=== PATIENT | female | born 1930 | race Caucasian/White ===

== ENCOUNTER 2016-09-20 10:43 | Inpatient (IN) | payer OTHER ==
[2016-09-20] VITALS (39 sets, daily range): BP systolic 114–184; BP diastolic 55–86; PULSE 67–80; RESP 16–20
[~2016-09-20] VITALS: Ht 157.5 cm; Wt 62.4 kg
[~2016-09-20 10:43] MED LIST: AMLO2.5T78 PO; DOCU-144 PO; FURO20TA3 PO; HYDR-3498 PO
[2016-09-20] MEDS ORDERED: ONDANSETRON 4 MG INJ IV STA ×2 (11:07→13:04)
[2016-09-20] MEDS ORDERED: morphine 4 MG/ML VIAL IV STA (11:07)
[2016-09-20] MEDS ORDERED: SOD CHLORIDE 0.9% 1,000 ML IV STA (11:07)
[2016-09-20 11:39] LABS: ADD SCAN DIFF NO
[2016-09-20 11:43] LABS: BASOPHILS % 0.3 % (0.0-2.0); EOSINOPHILS % 0.2 % (0.0-7.0); HEMOGLOBIN 13.3 g/dl (12.0-16.0); LYMPHOCYTES # 1.1 10^3/ul (0.8-2.9); LYMPHOCYTES % 9.3 % (15.0-51.0); MEAN CORPUSCULAR HEMOGLOBIN 28.2 pg (29.0-33.0); MEAN CORPUSCULAR HGB CONC 33.3 g/dl (32.0-37.0); MEAN CORPUSCULAR VOLUME 84.9 fl (82.0-101.0); MEAN PLATELET VOLUME 10.8 fl (7.4-10.4); MONOCYTE # 0.7 10^3/ul (0.3-0.9); MONOCYTES % 6.3 % (0.0-11.0); NEUTROPHIL # 9.6 10^3/ul (1.6-7.5); NEUTROPHILS % 83.6 % (39.0-77.0); PLATELET COUNT 239 10^3/UL (140-415); RED BLOOD COUNT 4.71 10^6/ul (4.20-5.40); RED CELL DISTRIBUTION WIDTH 14.6 % (11.5-14.5); WHITE BLOOD COUNT 11.5 10^3/ul (4.8-10.8)
[2016-09-20 11:59] LABS: ALBUMIN 4.1 g/dl (3.3-4.9); CHLORIDE 101 mmol/L (97-110); SODIUM 135 mmol/L (135-144)
[2016-09-20 12:00] LABS: POTASSIUM 3.8 mmol/L (3.5-5.1)
[2016-09-20 12:02] LABS: ALBUMIN/GLOBULIN RATIO 1.24; ALKALINE PHOSPHATASE 117 IU/L (42-121); ANION GAP 13 (8-16); ASPARTATE AMINO TRANSFERASE 27 IU/L (15-46); BILIRUBIN,INDIRECT 0.7 mg/dl (0-1.1); BILIRUBIN,TOTAL 0.7 mg/dl (0.2-1.3); BLOOD UREA NITROGEN 27 mg/dl (7-20); CARBON DIOXIDE 25 mmol/L (21-31); CREATININE 1.28 mg/dl (0.44-1.00); TOTAL PROTEIN 7.4 g/dl (6.1-8.1)
[2016-09-20 12:03] LABS: ALANINE AMINOTRANSFERASE 19 IU/L (13-69); CALCIUM 9.6 mg/dl (8.4-10.2); GLUCOSE 135 mg/dl (70-220)
[2016-09-20 12:05] LABS: INR 0.98
[2016-09-20 12:06] LABS: PARTIAL THROMBOPLASTIN TIME 25.8 Sec (25.0-35.0)
[2016-09-20 12:15] LABS: TROPONIN-I < 0.012 ng/ml (0.00-0.12)
[2016-09-20] MEDS ORDERED: HYDROmorphONE 1 MG/ML SYG IV STA (13:04)
--- NOTE | 2016-09-20 13:32 | RADRPT ---
PROCEDURE: XR Shoulder. CLINICAL INDICATION: Fall TECHNIQUE: Three views of the right shoulder are available for review. COMPARISON: None available FINDINGS: There is anterior dislocation of the humeral head. Addition there is a complete transverse fracture of the surgical neck of the humerus and a displaced fracture of the tuberosity, displaced laterally by up to 7 mm. The distal fragment is mildly displaced anteriorly and laterally. Mild AC joint ar throsis is noted. Decreased bone mineral density. IMPRESSION: 1. Anterior dislocation of the humeral head with a comminuted proximal humeral fracture, at least a three-part fracture. 2. Decreased bone mineral density. RPTAT: RR .Jeremias Ross MD, MD Date Time Electronically viewed and signed by .Jeremias Ross MD, on 09/20/2016 13:32 .d/
[2016-09-20] MEDS ORDERED: ONDANSETRON 4 MG INJ IV PRN ×3 (14:00→18:00)
--- NOTE | 2016-09-20 14:25 | ERA ---
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 GOOD DISTAL PULSES HPI This is a in 86-year-old female that presents to the emergency department after she indicated she had a mechanical slip and fall in her house and landed on a tile surface on the right shoulder. She is right-handed dominant. She is complaining of a significant amount of pain of her right shoulder and she is unable to move her right upper extremity, as this exacerbates pain, which is 10 out of 10 in intensity. She denies any numbness or tingling of her right upper extremity. The patient did not hit her head or lose consciousness. She denies of any chest pain abdominal pain and does not have a headache. Patient is a past medical history of hypertension. ROS All systems reviewed and are negative except as per history of present illness. Medications Home Meds Active Scripts Docusate Sodium* (Colace*) 100 Mg Capsule, 100 MG PO TID, #30 CAP Prov:ASHVIN ARIAS MD 01/11/16 Hydrocodone Bit-Acetaminophen* ([place]*) 5-325 Mg Tab, 1 TAB PO Q6 Y for PAIN, # 20 TAB Prov:ASHVIN ARIAS MD 01/11/16 Reported Medications Amlodipine Besylate* (Amlodipine Besylate*) 2.5 Mg Tablet, 2.5 MG PO DAILY, #30 TAB 01/11/16 Furosemide* (Furosemide*) 20 Mg Tablet, 20 MG PO DAILY, #60 TAB 01/11/16 Allergies Allergies: Coded Allergies: No Known Allergy (Unverified , 09/20/16) PMhx/Soc History of Surgery: Yes (LT LEG ) Anesthesia Reaction: No Hx Neurological Disorder: No Hx Respiratory Disorders: No Hx Cardiac Disorders: Yes (htn) Hx Psychiatric Problems: No Hx Miscellaneous Medical Probl: No Hx Alcohol Use: No Hx Substance Use: No Hx Tobacco Use: Yes Smoking Status: Former smoker Physical Exam Vitals Vital Signs Date Time Temp Pulse Resp B/P Pulse Ox O2 Delivery O2 Flow Rate FiO2 09/20/16 10:48 98.8 85 20 159/71 98 Physical Exam Constitutional:Well-developed. Well-nourished. HEENT:Normocephalic. Atraumatic.Pupils were equal round reactive to light. Moist mucous membranes.No tonsillar exudates. No nasal septal hematoma. No hemotympanum. Neck: No nuchal rigidity. No lymphadenopathy. No posterior cervical spine tenderness or step-offs. Respiratory: Not using accessory muscles of respiration.Lungs were clear to auscultation bilaterally. No rhonchi. No rales. No wheezing. Cardiovascular: Regular rate regular rhythm.No murmurs. No rubs were appreciated.S1, S2 normal. Distal pulses are palpable 2+ bilaterally. GI: Abdomen was soft. Nontender. Non Distended. No pulsatile abdominal masses or bruits. No rebound. No guarding. Bowel sounds were present and normal. No flank ecchymosis. No periumbilical ecchymosis Muscle skeletal: Lower extremities were of equal length and symmetrical with no internal or external rotation. Normal lie to the left humeral head. Abnormal lie to the right humeral head with significant tenderness over the right proximal humerus no obvious bony deformities of the midshaft or distal shaft of the right upper extremity. Flexion extension of the right elbow was able to be done both actively and passively but this exacerbated pain. No wrist drop on the right. No tenderness over the right metacarpals and patient had equal and symmetrical handgrip. Skin: No petechia, no purpura. No lesions on the palms or the soles of the feet. No maculopapular rash. NEURO: Patient was alert, awake, orientated x3.No facial droop. Gait observed and normal with no ataxia.Speech had regular rate and rhythm. No focal neurological deficits. FDP and FDS were intact bilaterally. Sensation intact over the axillary nerve as well as medial radial and ulnar nerve distribution of the right upper extremity. Radial and ulnar pulses were equal and symmetrical bilaterally Result Diagram: 09/20/16 1129 09/20/16 1129 Results 24 hrs Laboratory Tests Test 09/20/16 11:29 White Blood Count 11.510^3/ul Red Blood Count 4.7110^6/ul Hemoglobin 13.3g/dl Hematocrit 40.0% Mean Corpuscular Volume 84.9fl Mean Corpuscular Hemoglobin 28.2pg Mean Corpuscular Hemoglobin Concent 33.3g/dl Red Cell Distribution Width 14.6% Platelet Count 00273^3/UL Mean Platelet Volume 10.8fl Neutrophils % 83.6% Lymphocytes % 9.3% Monocytes % 6.3% Eosinophils % 0.2% Basophils % 0.3% Nucleated Red Blood Cells % 0.0/100WBC Neutrophils # 9.610^3/ul Lymphocytes # 1.110^3/ul Monocytes # 0.710^3/ul Eosinophils # 0.010^3/ul Basophils # 0.010^3/ul Nucleated Red Blood Cells # 0.010^3/ul Prothrombin Time 13.0Sec Prothrombin Time Ratio 1.0 INR International Normalized Ratio 0.98 Activated Partial Thromboplast Time 25.8Sec Sodium Level 135mmol/L Potassium Level 3.8mmol/L Chloride Level 101mmol/L Carbon Dioxide Level 25mmol/L Anion Gap 13 Blood Urea Nitrogen 27mg/dl Creatinine 1.28mg/dl Glucose Level 135mg/dl Calcium Level 9.6mg/dl Total Bilirubin 0.7mg/dl Direct Bilirubin 0.00mg/dl Indirect Bilirubin 0.7mg/dl Aspartate Amino Transf (AST/SGOT) 27IU/L Alanine Aminotransferase (ALT/SGPT) 19IU/L Alkaline Phosphatase 117IU/L Troponin I < 0.012ng/ml Total Protein 7.4g/dl Albumin 4.1g/dl Globulin 3.30g/dl Albumin/Globulin Ratio 1.24 Current Medications Medications (Trade) Dose Ordered Sig/Yanira Route PRN Reason Start Time Stop Time Status Last Admin Dose Admin Sodium Chloride (NS) 1,000 ml @ 1,000 mls/hr Q1H STAT IV 09/20/16 11:07 09/20/16 12:06 DC 09/20/16 11:35 Morphine Sulfate (morphine) 4 mg ONCE STAT IV 09/20/16 11:07 09/20/16 11:10 DC 09/20/16 11:35 Ondansetron HCl (Zofran Inj) 4 mg ONCE STAT IV 09/20/16 11:07 09/20/16 11:10 DC 09/20/16 11:34 Hydromorphone HCl (Dilaudid) 1 mg ONCE STAT IV 09/20/16 13:04 09/20/16 13:05 DC 09/20/16 13:42 Ondansetron HCl (Zofran Inj) 4 mg ONCE STAT IV 09/20/16 13:04 09/20/16 13:05 DC 09/20/16 13:42 Ondansetron HCl (Zofran Inj) 4 mg BRIDGE ORDER PRN IV NAUSEA AND/OR VOMITING 09/20/16 14:00 09/21/16 13:59 Procedures/MDM This patient presented to the emergency department after she expressed a ground- level fall. The patient was in a significant amount of discomfort and immediately was placed in a monitoring specialist continuous pulse oximetry and IV access was established by nursing staff. The patient had a fracture dislocation of her right upper extremity that was present on physical exam and as well as the two-view right shoulder radiograph that was ordered and reviewed by myself. At this time the patient had been placed in a sling for immobilization. She was neurovascularly intact. I spoke with the radiologist Dr. Barrera who kindly stated he will take the patient to the OR for definitive treatment for her fracture dislocation. The patient had received intravenous morphine and Zofran for analgesic control but this did not improve her pain. Therefore she was given IV Dilaudid at this time. I obtained a 12-lead EKG tracing for preoperative workup. There is no electrolyte abnormalities. 12 Lead EKG tracing ordered and reviewed by myself showed: Normal sinus rhythm of 60 bpm and no arrhythmia. WI interval normal. QRS duration normal. No ST segment elevation No ST segment depression. No changes consistent with acute ischemia. The patient will be admitted to , in serious condition with an anticipated stay of greater than 2 midnights given that the patient will have to go to the OR for definitive treatment of her fracture dislocation of the right upper extremity. Critical Care: Time: 40 minutes Treatments/Evaluations: Close monitoring and treatment of unstable vital signs, cardiorespiratory, and neurologic status, while maintaining tight balance of fluid, respiratory, and cardiac interventions. Time does not include performing any of the above billable procedures. Departure Diagnosis: Primary Impression: Anterior dislocation of right shoulder Qualified Code: S43.014A - Anterior dislocation of right shoulder, initial encounter Additional Impression: Fracture of neck of humerus Qualified Code: S42.211A - Fracture of neck of humerus, right, closed, initial encounter Condition: Serious NILDA HIGGINS Sep 20, 2016 14:25
[2016-09-20] MEDS ORDERED: SOD CHLORIDE 0.9% 1,000 ML IV SCH (15:26)
[2016-09-20] MEDS ORDERED: HYDROCODONE/APAP (5/325) TAB PO PRN ×3 (15:30→17:30)
[2016-09-20] MEDS ORDERED: BISACODYL 10 MG SUPP PR PRN (15:30)
[2016-09-20] MEDS ORDERED: morphine 2 MG INJ IV PRN (15:30)
[2016-09-20] MEDS ORDERED: DOCUSATE SODIUM 100 MG CAP PO PRN (15:30)
[2016-09-20] MEDS ORDERED: MAGNESIUM HYDROXIDE 30ML CUP PO PRN (15:30)
[2016-09-20] MEDS ORDERED: ACETAMINOPHEN 325 MG TAB PO PRN (15:30)
[2016-09-20] MEDS ORDERED: NACL 0.9% 3 ML SYG IV SCH (15:30)
--- NOTE | 2016-09-20 15:52 | RADRPT ---
PROCEDURE: XR Chest. CLINICAL INDICATION: Trauma due to a fall. Chest pain and right shoulder pain. TECHNIQUE: Single frontal view. COMPARISON: Right shoulder radiographs done earlier the same day. FINDINGS: There is mild right basilar atelectasis. The lungs are otherwise clear. The heart is mildly enlarged. There is calcification in the aorta consistent with atherosclerosis. There is no pleural effusion or pneumothorax. As described on prior right shoulder radiographs, there is anterior dislocation of the humeral head and the comminuted proximal humerus fracture with at least 3 parts. IMPRESSION: 1. Mild right basilar atelectasis. 2. Mild cardiomegaly. 3. Atherosclerosis. 4. Fracture dislocation of the right humeral head. RPTAT: QQ .Dragan Messina MD, MD Date Time Electronically viewed and signed by .Dragan Messina MD, on 09/20/2016 15:52 .R/
--- NOTE | 2016-09-20 15:55 | HP ---
Date/Time of Note Date/Time of Note DATE: 09/20/16 TIME: 15:42 Assessment/Plan VTE Prophylaxis VTE Prophylaxis Intervention: SCD's Assessment/Plan Assessment/Plan 86-year-old female: 1. Right shoulder dislocation and humeral head fracture, Dr. Barrera has evaluated the patient, plan is for with reduction of the dislocated shoulder, hopefully patient will not need any further surgery after that just a sling and let the fracture heal Currently n.p.o., IV fluid has been ordered. From the medical standpoint patient may proceed with procedure with minimal anesthesia for reduction of the dislocated shoulder 2. Acute kidney injury versus chronic kidney disease: Continue IV fluids, recheck BMP in a.m. 3. Hypertension: Continue amlodipine, hydralazine as needed for systolic blood pressure above 160 4. Tobacco use: Nicotine patch, nebulizer treatment as needed for shortness of breath or wheezing, patient is encouraged to quit 5. Hard of hearing: Hearing aids in place Prophylaxis: Pepcid for GI prophylaxis, SCDs to lower extremity for DVT prophylaxis Disposition: To OR with Dr. Barrera for reduction of the dislocated shoulder, patient may need half-way facility placement in the next 24-48 hours depending on additional needs HPI/ROS Admit Date/Time Admit Date/Time 09/20/2016 Hx of Present Illness Chief complaint: Status post mechanical fall History of presenting illness: This is a 86-year-old female with history of hypertension mild, tobacco user moderate who presented in the emergency department status post mechanical fall this morning. The patient tripped and fell on the carpet, she fell on her right side and did not hit her head. She was having right shoulder pain, in the emergency department she was diagnosed with dislocation of the right shoulder and fracture of the humeral head on x- ray. She remains hemodynamically stable, EKG shows normal sinus rhythm no acute changes. She has no previous history of coronary artery disease. She denies chest pain, shortness of breath, dizziness. She has been evaluated by Dr. Barrera who will take her to the operating room for reduction of the dislocation of the right shoulder under anesthesia. From the medical standpoint the patient may proceed with the procedure, she is a mild to moderate risk but currently optimized with no acute symptoms. I will order nebulizer treatments perioperatively due to her history of tobacco use. Chest x-ray was reviewed and stable. The patient is hard of hearing at baseline. PMH/Family/Social Past Medical History Medical History: hypertension Past Surgical History Status post left heel surgery remotely Past Surgical Hx: other Social History Patient lives with her grandson, she is independent with all ADLs at baseline Smoking Status: Current every day smoker (4 cigarettes a day) Exam/Review of Systems Vital Signs Vitals Vital Signs Date Time Temp Pulse Resp B/P Pulse Ox O2 Delivery O2 Flow Rate FiO2 09/20/16 14:26 18 148/54 98 Room Air 09/20/16 12:48 74 09/20/16 10:48 98.8 Exam Constitutional: alert, oriented, well developed Respiratory: clear to auscultation, normal air movement Cardiovascular: nl pulses, regular rate and rhythm Gastrointestinal: non-tender, soft Musculoskeletal: nl extremities to inspection, other (Dislocated right shoulder ) Extremities: normal pulses, other (No edema, clubbing or cyanosis) Neurological: PERSONAL PROPERTY ASSESSOR II-XII intact, nl mental status, nl speech, nl strength, other (Hard of hearing) Labs Result Diagram: 09/20/16 1129 09/20/16 1129 Procedures Procedures PROCEDURE: XR Shoulder. CLINICAL INDICATION: Fall TECHNIQUE: Three views of the right shoulder are available for review. COMPARISON: None available FINDINGS: There is anterior dislocation of the humeral head. Addition there is a complete transverse fracture of the surgical neck of the humerus and a displaced fracture of the tuberosity, displaced laterally by up to 7 mm. The distal fragment is mildly displaced anteriorly and laterally. Mild AC joint arthrosis is noted. Decreased bone mineral density. IMPRESSION: 1. Anterior dislocation of the humeral head with a comminuted proximal humeral fracture, at least a three-part fracture. 2. Decreased bone mineral density. PROCEDURE: XR Chest. CLINICAL INDICATION: Trauma due to a fall. Chest pain and right shoulder pain. TECHNIQUE: Single frontal view. COMPARISON: Right shoulder radiographs done earlier the same day. FINDINGS: There is mild right basilar atelectasis. The lungs are otherwise clear. The heart is mildly enlarged. There is calcification in the aorta consistent with atherosclerosis. There is no pleural effusion or pneumothorax. As described on prior right shoulder radiographs, there is anterior dislocation of the humeral head and the comminuted proximal humerus fracture with at least 3 parts. IMPRESSION: 1. Mild right basilar atelectasis. 2. Mild cardiomegaly. 3. Atherosclerosis. 4. Fracture dislocation of the right humeral head. RPTAT: QQ .Dragan Messina MD, Date Time Electronically viewed and signed by .Dragan Messina MD, on 09/20/2016 15:52 JONAH JANG Sep 20, 2016 15:54
[2016-09-20] MEDS ORDERED: ALBUTEROL/IPRATROPIUM (NEB) 3 ML AMP HHN PRN (16:00)
[2016-09-20] MEDS ORDERED: hydrALAzine 20 MG INJ IV PRN ×2 (16:00→18:00)
[2016-09-20] MEDS ORDERED: LIDOCAINE 2% (SDV) 5 ML INJ ONE (16:58)
[2016-09-20] MEDS ORDERED: PROPOFOL 20 ML ONE (16:58)
[2016-09-20] MEDS ORDERED: FENTAnyl 50 MCG/ML VIAL ONE ×2 (16:59→17:49)
[2016-09-20] MEDS ORDERED: PHENYLephrine (100 MCG/ML) 5ML SYG ONE (17:16)
[2016-09-20] MEDS ORDERED: HYDROmorphONE (0.2 MG/ML) 10ML SYG IV PRN ×2 (18:00)
[2016-09-20] MEDS ORDERED: FENTAnyl 50 MCG/ML VIAL IV PRN (18:00)
--- NOTE | 2016-09-20 18:21 | CONS ---
DATE OF ADMISSION: 09/20/2016 DATE OF CONSULTATION: 09/20/2016 TYPE OF CONSULTATION: Orthopedic surgical HISTORY OF PRESENT ILLNESS: The patient is an 86-year-old female who was admitted on 09/20/2016 whe n she was brought into the emergency room because of the painful swelling and limit of motion involv ing her right shoulder. According to the patient, she fell on her right shoulder when she slipped a nd fell on the day of her admission. Following the fall, she was not able to move her right shoulde r because of the severe pain. Initial evaluation in the emergency room revealed the presence of rat her unusual combination of comminuted fracture involving the proximal shoulder dislocation with the comminuted fracture involving the right humeral head. Because of the unusual combination of this co mminuted fracture involving the humeral head along with the coexisting dislocation of the right shou lder joint, it was felt that she should be treated with trial of manipulative reduction under comple te anesthesia along with fluoroscopic monitoring. PHYSICAL EXAMINATION: My examination revealed an 86-year-old right-handed female who is complaining of painful swelling and limit of motion of the right shoulder. There was no obvious neurovascular compromise involving the right upper extremity at this time. The range of motion of the right shoul robert was not tested because of the obvious pain. DIAGNOSTIC DATA: X-rays of the right shoulder were reviewed and it revealed a presence of comminute d fracture involving the humeral head and neck, which is comminuted and displaced, along with the ob vious anterior type of shoulder dislocation. DIAGNOSTIC IMPRESSION: Severely comminuted and displaced fracture involving the humeral head and ne ck combined with the anterior type dislocation at the glenohumeral joint. TREATMENT PLAN: 1. Trial of manipulative reduction under full anesthesia and under fluoroscopic monitoring. 2. If the manipulative reduction is satisfactory, then further treatment should be carried out util izing HSS brace aiming for acceptable alignment of the fracture in a reduced position with the utili zation of an HSS brace. 3. If the manipulative reduction is not satisfactory, then possible primary hemiarthroplasty of the humeral head may have to be considered. Dictated By: KEVIN HERNANDEZ/SAILAJA Conf#: [id number] DID#: [id number]
--- NOTE | 2016-09-20 18:49 | OPR ---
DATE OF OPERATION: 09/20/2016 PREOPERATIVE DIAGNOSIS: Comminuted and displaced fracture involving the humeral head, combined with the anterior dislocation of the glenohumeral joint. POSTOPERATIVE DIAGNOSIS: Comminuted and displaced fracture involving the humeral head, combined wit h the anterior dislocation of the glenohumeral joint. OPERATION PERFORMED: Trial of manipulative reduction under complete anesthesia and under fluoroscop ic monitoring. ANESTHESIA: General anesthesia. SURGEON: Kevin Barrera MD PROCEDURE AND FINDINGS: Patient was placed in supine position upon the operating table. A satisfac tory pain control and complete muscle relaxation and sedation was carried out by general anesthesia. A C-arm was placed in such a way that AP and Y view of the right shoulder could be available throu ghout the procedure. With the countertraction placed with the bed sheet cover placed around the axi lla, gentle manipulative reduction was carried out, instead of carrying out sudden and strong push a nd pull gentle steadily increasing ____was applied while the alignment is observed in fluoroscopy an d the usual clunking sensation, the humeral head with all the fractured parts together was reduced i nto the glenohumeral articulation. At the end of the procedure, the right upper extremity was immob ilized in a sling and the AP and Y view of the right shoulder revealed a satisfactory alignment of t he fracture in the glenohumeral articulation. The patient tolerated the entire procedure very well without any unusual problems and the patient wa s sent to the recovery room in good condition. SURGEON: Kevin Barrera MD Dictated By: KEVIN HERNANDEZ/SAILAJA Conf#: [id number] DID#: [id number]
--- NOTE | 2016-09-20 19:33 | RADRPT ---
PROCEDURE: XR right shoulder. CLINICAL INDICATION: Postoperative for reduction of anterior dislocation of fractures right bill andrew TECHNIQUE: 3 views of the right shoulder were performed. COMPARISON: 09/20/2016. FINDINGS: Previously seen anterior dislocation of the right humerus is resolved. Comminuted fracture of the r ight humeral head and surgical neck of the right humerus. Consider CT correlation. Demineralizatio n limits evaluation of fine osseous detail. Remaining osseous structures otherwise without evident a cute fracture. The soft tissues are unremarkable. IMPRESSION: 1. Previously seen anterior dislocation of the right humerus is resolved. 2. Comminuted fracture of the proximal right humeral head and surgical neck. RPTAT: [facility] Physician Selina Date Time Electronically viewed and signed by Physician Selina on 09/20/2016 19:33 RS/
[2016-09-20] MEDS: FAMOTIDINE 20 MG INJ IV SCH (20:57)
[2016-09-20] MEDS: DOCUSATE SODIUM 100 MG CAP PO SCH (20:57)
[2016-09-20] MEDS: SOD CHLORIDE 0.9% 1,000 ML IV SCH (21:00)
[2016-09-21] VITALS: BP 155/66; RESP 18
[2016-09-21] MEDS: SOD CHLORIDE 0.9% 1,000 ML IV SCH ×3 (03:28→14:25)
[2016-09-21 05:16] LABS: ADD SCAN DIFF NO
[2016-09-21 05:28] LABS: ALBUMIN 3.1 g/dl (3.3-4.9)
[2016-09-21 05:29] LABS: POTASSIUM 3.9 mmol/L (3.5-5.1)
[2016-09-21 05:30] LABS: BASOPHILS % 0.4 % (0.0-2.0); EOSINOPHILS % 0.4 % (0.0-7.0); HEMATOCRIT 35.7 % (37.0-47.0); HEMOGLOBIN 11.4 g/dl (12.0-16.0); LYMPHOCYTES # 1.2 10^3/ul (0.8-2.9); LYMPHOCYTES % 17.3 % (15.0-51.0); MEAN CORPUSCULAR HEMOGLOBIN 27.7 pg (29.0-33.0); MEAN CORPUSCULAR HGB CONC 31.9 g/dl (32.0-37.0); MEAN CORPUSCULAR VOLUME 86.7 fl (82.0-101.0); MONOCYTE # 0.9 10^3/ul (0.3-0.9); MONOCYTES % 12.9 % (0.0-11.0); NEUTROPHIL # 4.8 10^3/ul (1.6-7.5); NEUTROPHILS % 68.7 % (39.0-77.0); PLATELET COUNT 196 10^3/UL (140-415); RED BLOOD COUNT 4.12 10^6/ul (4.20-5.40); RED CELL DISTRIBUTION WIDTH 14.6 % (11.5-14.5)
[2016-09-21 05:31] LABS: ALBUMIN/GLOBULIN RATIO 1.14; BILIRUBIN,INDIRECT 1.3 mg/dl (0-1.1); BILIRUBIN,TOTAL 1.3 mg/dl (0.2-1.3); CREATININE 1.24 mg/dl (0.44-1.00); TOTAL PROTEIN 5.8 g/dl (6.1-8.1)
[2016-09-21 05:32] LABS: CALCIUM 8.5 mg/dl (8.4-10.2); MAGNESIUM 2.1 mg/dl (1.7-2.5)
[2016-09-21 07:39] VITALS: Ht 157.5 cm; Wt 62.4 kg
[2016-09-21 07:45] VITALS: BP 170/73; RESP 19
[2016-09-21] MEDS: DOCUSATE SODIUM 100 MG CAP PO SCH ×3 (09:02→21:04)
[2016-09-21] MEDS: FAMOTIDINE 20 MG INJ IV SCH (09:02)
[2016-09-21] MEDS: AMLODIPINE 2.5 MG TAB PO SCH (09:03)
--- NOTE | 2016-09-21 12:03 | RADRPT ---
PROCEDURE: X-ray fluoroscopy guidance CLINICAL INDICATION: Close reduction of the right shoulder. TECHNIQUE: Fluoroscopic guidance was utilized for an intraoperative procedure. COMPARISON: None available FINDINGS: Fluoroscopic guidance was utilized for closed reduction of the right shoulder. A markedly comminute d fracture of the right humerus is noted with involvement of the surgical neck of the humerus and a displaced greater tuberosity fracture. The humeral head appears position on the final spot images. 41 seconds of fluoroscopy time was utilized for the procedure. 5 fluoroscopic spot images were obt ained. IMPRESSION: 1. X-ray fluoroscopic guidance utilized for close reduction of the comminuted humeral head fracture and dislocation. RPTAT: PP .Jeremias Ross MD, Date Time Electronically viewed and signed by .Jeremias Ross MD, MD on 09/21/2016 12:03 .d/
--- NOTE | 2016-09-21 12:10 | PN ---
Date/Time of Note Date/Time of Note DATE: 09/21/16 TIME: 11:56 Assessment/Plan VTE Prophylaxis VTE Prophylaxis Intervention: SCD's Lines/Catheters IV Catheter Type (from Nrsg): Peripheral IV Urinary Cath still in place: No Assessment/Plan Assessment/Plan 86-year-old female: 1. Right shoulder dislocation and humeral head fracture, Dr. Barrera has evaluated the patient, S/p Reduction of the dislocated shoulder, Still awaiting brace and PT eval for placement. Likely to need SNF Left humeral head fx to heal on its own with sling/brace in place D/c IVF as tolerating po. 2. Acute kidney injury versus chronic kidney disease: Taking po well, d/c IVF. Renal function stable 3. Hypertension: Continue amlodipine, hydralazine as needed for systolic blood pressure above 160 4. Tobacco use: Nebulizer treatment as needed for shortness of breath or wheezing, patient is encouraged to quit 5. Hard of hearing: Hearing aids in place and stable. Prophylaxis: Pepcid for GI prophylaxis, SCDs to lower extremity for DVT prophylaxis Disposition: POD#1 s/p Reduction of the dislocated shoulder by Dr Barrera, patient may need nursing home facility placement in the next 24 hrs depending on PT recommendation. Subjective 24 Hr Interval Summary Free Text/Dictation Patient doing OK LUE post reduction of dislocation, brace pending Pain controlled D/c plan depends on PT recommendations within the next 24 hrs Exam/Review of Systems Vital Signs Vitals Vital Signs Date Time Temp Pulse Resp B/P Pulse Ox O2 Delivery O2 Flow Rate FiO2 09/21/16 08:00 Nasal Cannula 2.0 09/21/16 07:45 98.2 71 19 170/73 98 Intake and Output 09/20/16 09/20/16 09/21/16 15:00 23:00 07:00 Intake Total 1200 ml 1338 ml Output Total 450 ml Balance 1200 ml 888 ml Exam Constitutional: alert, oriented, well developed Respiratory: clear to auscultation, normal air movement Cardiovascular: nl pulses, regular rate and rhythm Gastrointestinal: non-tender, soft Musculoskeletal: nl extremities to inspection, other (NURYS in sling ) Extremities: normal pulses, other (no edema, clubbing or cyanosis ) Neurological: CASHIER OFFICE II-XII intact, nl mental status, nl speech, other (awaiting PT this AM ) Results Result Diagram: 09/21/16 0429 09/21/16 0420 Results 24 hrs Laboratory Tests Test 09/21/16 04:20 09/21/16 04:29 Sodium Level 137 Potassium Level 3.9 Chloride Level 105 Carbon Dioxide Level 27 Anion Gap 9 Blood Urea Nitrogen 24 H Creatinine 1.24 H Glucose Level 102 Calcium Level 8.5 Magnesium Level 2.1 Total Bilirubin 1.3 Direct Bilirubin 0.00 Indirect Bilirubin 1.3 H Aspartate Amino Transf (AST/SGOT) 22 Alanine Aminotransferase (ALT/SGPT) 21 Alkaline Phosphatase 86 Total Protein 5.8 #L Albumin 3.1 #L Globulin 2.70 Albumin/Globulin Ratio 1.14 White Blood Count 7.0 # Red Blood Count 4.12 L Hemoglobin 11.4 L Hematocrit 35.7 L Mean Corpuscular Volume 86.7 Mean Corpuscular Hemoglobin 27.7 L Mean Corpuscular Hemoglobin Concent 31.9 L Red Cell Distribution Width 14.6 H Platelet Count 196 Mean Platelet Volume 11.0 H Neutrophils % 68.7 Lymphocytes % 17.3 Monocytes % 12.9 H Eosinophils % 0.4 Basophils % 0.4 Nucleated Red Blood Cells % 0.0 Neutrophils # 4.8 Lymphocytes # 1.2 Monocytes # 0.9 Eosinophils # 0.0 Basophils # 0.0 Nucleated Red Blood Cells # 0.0 Medications Medications Current Medications Ondansetron HCl (Zofran Inj) 4 mg Q6H PRN IV NAUSEA AND/OR VOMITING; Start at 15:30 Acetaminophen (Tylenol Tab) 650 mg Q6H PRN PO PAIN LEVEL 1-3 OR FEVER; Start at 15:30 Acetaminophen/ Hydrocodone Bitart ([place] (5/325)) 2 tab Q6H PRN PO SEVERE PAIN LEVEL 7-10; Start 09/20/16 at 15:30 Morphine Sulfate (morphine) 2 mg Q4H PRN IV SEVERE PAIN LEVEL 7-10; Start 09/20 at 15:30 Docusate Sodium (Colace) 100 mg Q12H PRN PO CONSTIPATION; Start 09/20/16 at 15: 30 Magnesium Hydroxide (Milk Of Mag) 30 ml DAILY PRN PO CONSTIPATION; Start at 15:30 Bisacodyl (Dulcolax Supp) 10 mg DAILY PRN [place] CONSTIPATION; Start 09/20/16 at 15 :30 Famotidine (Pepcid Iv) 20 mg Q12 IV Last administered on 09/21/16 09:02; Admin Dose 20 MG; Start 09/20/16 at 21:00 Amlodipine Besylate (Norvasc) 2.5 mg DAILY PO Last administered on 09/21/16 09 :03; Admin Dose 2.5 MG; Start 09/21/16 at 09:00 Docusate Sodium (Colace) 100 mg TID PO Last administered on 09/21/16 09:02; Admin Dose 100 MG; Start 09/20/16 at 21:00 Hydralazine HCl 10 mg 10 mg Q8H PRN IV ELEVATED BLOOD PRESSURE; Start 09/20/16 at 16:00 Sodium Chloride (NS) 1,000 ml @ 100 mls/hr Q10H IV Last administered on 06:59; Admin Dose 100 MLS/HR; Start 09/20/16 at 17:28 Acetaminophen/ Hydrocodone Bitart ([place] (5/325)) 1 tab Q3H PRN PO PAIN Last administered on 09/20/16 20:57; Admin Dose 1 TAB; Start 09/20/16 at 17:30 JONAH JANG Sep 21, 2016 12:07
[2016-09-21] MEDS: FAMOTIDINE 20 MG TAB PO SCH ×2 (14:24→21:04)
[2016-09-21] MEDS ORDERED: HYDROCODONE/APAP (5/325) TAB PO PRN (18:00)
[2016-09-21 19:39] VITALS: BP 161/71; RESP 22
--- NOTE | 2016-09-21 20:37 | RADRPT ---
PROCEDURE: XR Right Shoulder. CLINICAL INDICATION: Right shoulder pain. Postop. TECHNIQUE: Three views. Frontal internal rotation, frontal external rotation, and oblique. COMPARISON: 09/20/2016. FINDINGS: As seen previously, there is a comminuted fracture of the right humeral head and surgical neck. Thi s is unchanged. There is no dislocation. The soft tissues are normal. There is no lytic or blastic lesion. There is no radiopaque foreign body. IMPRESSION: 1. Comminuted fracture of the right humeral head surgical neck, unchanged. 2. No dislocation. RPTAT: QQ .Dragan Messina MD, Date Time Electronically viewed and signed by .Dragan Messina MD, on 09/21/2016 20:37 .R/
[2016-09-22] MEDS: SOD CHLORIDE 0.9% 1,000 ML IV SCH (04:37)
[2016-09-22 04:54] LABS: ADD SCAN DIFF NO
[2016-09-22 05:04] LABS: BASOPHILS % 0.5 % (0.0-2.0); EOSINOPHILS # 0.1 10^3/ul (0.0-0.5); EOSINOPHILS % 0.7 % (0.0-7.0); HEMATOCRIT 32.5 % (37.0-47.0); HEMOGLOBIN 10.7 g/dl (12.0-16.0); LYMPHOCYTES # 1.9 10^3/ul (0.8-2.9); MEAN CORPUSCULAR HEMOGLOBIN 28.7 pg (29.0-33.0); MEAN CORPUSCULAR HGB CONC 32.9 g/dl (32.0-37.0); MEAN CORPUSCULAR VOLUME 87.1 fl (82.0-101.0); MEAN PLATELET VOLUME 11.2 fl (7.4-10.4); MONOCYTE # 1.2 10^3/ul (0.3-0.9); MONOCYTES % 13.5 % (0.0-11.0); NEUTROPHIL # 5.4 10^3/ul (1.6-7.5); NEUTROPHILS % 63.1 % (39.0-77.0); PLATELET COUNT 183 10^3/UL (140-415); RED BLOOD COUNT 3.73 10^6/ul (4.20-5.40); RED CELL DISTRIBUTION WIDTH 14.6 % (11.5-14.5); WHITE BLOOD COUNT 8.6 10^3/ul (4.8-10.8)
[2016-09-22 05:15] LABS: MAGNESIUM 2.1 mg/dl (1.7-2.5)
[2016-09-22 05:18] LABS: POTASSIUM 3.7 mmol/L (3.5-5.1)
[2016-09-22 05:22] LABS: CALCIUM 8.4 mg/dl (8.4-10.2)
[2016-09-22 07:55] VITALS: BP 119/59; RESP 19
[2016-09-22] MEDS: AMLODIPINE 2.5 MG TAB PO SCH (09:34)
[2016-09-22] MEDS: FAMOTIDINE 20 MG TAB PO SCH (09:34)
[2016-09-22] MEDS: DOCUSATE SODIUM 100 MG CAP PO SCH ×2 (09:34→13:00)
--- NOTE | 2016-09-22 13:55 | RADRPT ---
PROCEDURE: Right shoulder two views CLINICAL INDICATION: Right shoulder fracture follow-up. Right shoulder pain. TECHNIQUE: AP and transscapular Y views of the right shoulder were obtained COMPARISON: September 21, 2016 FINDINGS: Diffuse osteopenia is identified. Comminuted, impacted fracture through the surgical neck of the pr oximal left humerus continues to be identified and appears unchanged. Vertical extension of fractur e lines to involve the greater tuberosity of the humeral head appears unchanged. No destructive bon y lesions are observed. Mild narrowing and degenerative change of the acromioclavicular and glenohu meral joints is stable. Soft tissues are grossly unremarkable. IMPRESSION: Stable comminuted, impacted fracture through the surgical neck of the proximal left humerus with esther tical extension of fracture lines to involve the greater tuberosity. Osteopenia. Stable mild degenerative changes of the glenohumeral and acromioclavicular joints. RPTAT: AA .Adams Ruth MD, Date Time Electronically viewed and signed by .Adams Ruth MD, on 09/22/2016 13:54 .P/
--- NOTE | 2016-09-22 15:03 | PN ---
Date/Time of Note Date/Time of Note DATE: 09/22/16 TIME: 14:49 Assessment/Plan VTE Prophylaxis VTE Prophylaxis Intervention: SCD's Lines/Catheters IV Catheter Type (from Nrs): Peripheral IV Urinary Cath still in place: No Assessment/Plan Assessment/Plan 86-year-old female: 1. Right shoulder dislocation and humeral head fracture, S/p Reduction of the dislocated shoulder POD#2 SPC/HHS brace in place, Ok to d/c home with home health PT, safety eval and Home health RN, cane for ambulation, Left humeral head fx to heal on its own with sling/brace in place D/c home today if Ok with Dr Barrera with outpatient follow up. 2. Acute kidney injury versus chronic kidney disease: Taking po well, d/c IVF. Renal function back to normal. 3. Hypertension: Continue amlodipine, hydralazine as needed for systolic blood pressure above 160 4. Tobacco use: Nebulizer treatment as needed for shortness of breath or wheezing, patient is encouraged to quit 5. Hard of hearing: Hearing aids in place and stable. Prophylaxis: Pepcid for GI prophylaxis, SCDs to lower extremity for DVT prophylaxis. Disposition: POD#2 s/p Reduction of the dislocated shoulder by Dr Barrera, patient refusing SNF and per PT too high level for SNF so Ok to go home with home health PT, cane and caregiver. Subjective 24 Hr Interval Summary Free Text/Dictation Patient remains stable, repeat right shoulder XRchristine hankins and Dr Barrera to see prior to discharge Appreciate Forest Officer and PT eval and recommendations Exam/Review of Systems Vital Signs Vitals Vital Signs Date Time Temp Pulse Resp B/P Pulse Ox O2 Delivery O2 Flow Rate FiO2 09/22/16 07:55 98.0 62 19 119/59 98 09/21/16 08:00 Nasal Cannula 2.0 Intake and Output 09/21/16 09/21/16 09/22/16 15:00 23:00 07:00 Intake Total 575 ml 905 ml 1350 ml Output Total 650 ml Balance 575 ml 255 ml 1350 ml Exam Constitutional: alert, oriented, well developed Respiratory: clear to auscultation, normal air movement Cardiovascular: nl pulses, regular rate and rhythm Gastrointestinal: non-tender, soft Musculoskeletal: nl extremities to inspection Extremities: normal pulses, other (no edema, clubbing, or cyanosis ) Neurological: ALGEBRA TEACHER II-XII intact, nl mental status, nl speech, nl strength Results Result Diagram: 09/22/1641409/22/16414 Results 24 hrs Laboratory Tests Test 09/22/16 04:15 White Blood Count 8.6 # Red Blood Count 3.73 L Hemoglobin 10.7 L Hematocrit 32.5 L Mean Corpuscular Volume 87.1 Mean Corpuscular Hemoglobin 28.7 L Mean Corpuscular Hemoglobin Concent 32.9 Red Cell Distribution Width 14.6 H Platelet Count 183 Mean Platelet Volume 11.2 H Neutrophils % 63.1 Lymphocytes % 22.0 Monocytes % 13.5 H Eosinophils % 0.7 Basophils % 0.5 Nucleated Red Blood Cells % 0.0 Neutrophils # 5.4 Lymphocytes # 1.9 Monocytes # 1.2 H Eosinophils # 0.1 Basophils # 0.0 Nucleated Red Blood Cells # 0.0 Sodium Level 139 Potassium Level 3.7 Chloride Level 110 Carbon Dioxide Level 25 Anion Gap 8 Blood Urea Nitrogen 17 Creatinine 1.00 Glucose Level 93 Calcium Level 8.4 Phosphorus Level 3.0 Magnesium Level 2.1 Medications Medications Current Medications Ondansetron HCl (Zofran Inj) 4 mg Q6H PRN IV NAUSEA AND/OR VOMITING; Start at 15:30 Acetaminophen (Tylenol Tab) 650 mg Q6H PRN PO PAIN LEVEL 1-3 OR FEVER; Start at 15:30 Acetaminophen/ Hydrocodone Bitart ([place] (5/325)) 2 tab Q6H PRN PO SEVERE PAIN LEVEL 7-10 Last administered on 09/22/16 00:17; Admin Dose 2 TAB; Start at 15:30 Morphine Sulfate (morphine) 2 mg Q4H PRN IV SEVERE PAIN LEVEL 7-10; Start 09/20 at 15:30 Docusate Sodium (Colace) 100 mg Q12H PRN PO CONSTIPATION; Start 09/20/16 at 15: 30 Magnesium Hydroxide (Milk Of Mag) 30 ml DAILY PRN PO CONSTIPATION; Start at 15:30 Bisacodyl (Dulcolax Supp) 10 mg DAILY PRN [place] CONSTIPATION; Start 09/20/16 at 15 :30 Amlodipine Besylate (Norvasc) 2.5 mg DAILY PO Last administered on 09/22/16 09 :34; Admin Dose 2.5 MG; Start 09/21/16 at 09:00 Docusate Sodium (Colace) 100 mg TID PO Last administered on 09/22/16 09:34; Admin Dose 100 MG; Start 09/20/16 at 21:00 Hydralazine HCl (Apresoline) 10 mg Q8H PRN IV ELEVATED BLOOD PRESSURE; Start at 16:00 Acetaminophen/ Hydrocodone Bitart ([place] (5/325)) 1 tab Q6H PRN PO PAIN Last administered on 09/21/16 18:06; Admin Dose 1 TAB; Start 09/21/16 at 18:00 Famotidine (Pepcid) 20 mg BID PO Last administered on 09/22/16 09:34; Admin Dose 20 MG; Start 09/21/16 at 14:00 JONAH JANG Sep 22, 2016 15:01
--- NOTE | 2016-09-22 15:05 | PDOCDIS ---
Discharge Instructions CONDITION Patient Condition: Stable HOME CARE INSTRUCTIONS: Special Diet: REGULAR DIET ACTIVITY: Activity Restrictions: Slowly Increase Activity Avoid heavy lifting Avoid Heavy Housework FOLLOW UP/APPOINTMENTS Appointments Follow up with PCP within 1 week Follow up with Dr Barrera in 1 week Follow up with Home health PT for safety eval Follow up with caregiver at home JONAH JANG Sep 22, 2016 15:05
--- NOTE | 2016-09-23 12:36 | DS ---
DATE OF ADMISSION: 09/20/2016 DATE OF DISCHARGE: 09/22/2016 TUFTER OPERATOR ON THIS ADMISSION: Dr. Chandu Barrera from orthopedic surgery. CHIEF COMPLAINT ON ADMISSION: Status post mechanical fall with right shoulder pain. BRIEF HISTORY OF PRESENT ILLNESS: This is an 86-year-old female with history of mild hypertension, still tobacco user, moderate, who presented to the emergency department status post mechanical fall. She was having right shoulder pain. X-ray did diagnose a fractured right humeral head and disloca bryan shoulder. Because of the fracture of the humeral head, the dislocation could not be reduced in the ER. Therefore, Dr. Chandu Barrera, was consulted, who recommended to reduce the dislocation as soon as possible in the OR. The patient was restratified and taken to the OR for reduction of her right shoulder dislocation. HOSPITAL COURSE: Postoperatively, patient has been admitted to a medical/surgical bed for pain cont rol. She had an HSS brace put in place. The right shoulder dislocation was successfully reduced; h owever, the humeral head fracture was not surgically repaired as outcome is poor according to Dr. Christian hayward and given her advanced age. The recommendation was for her to have secondary healing by reema castellanos ng her right upper extremity in a brace and immobilized. Shoulder x-rays postoperatively and 24 triston rs after the brace was placed show stable reduction of the dislocation and underlying fractures. Th e recommendation at this point, is for the patient to keep the brace on, follow up with Dr. Barrera in 1 week and further recommendation following that. The patient was barely requiring any pain medicati on while inpatient. We had a social service evaluation. I have offered the patient usp facility placement. Also offered it to the family who are refusing at this point. The patient was evaluated by physical therapy. She seems to be high level. Therefore, the recommendation at this point is for discharge home with home health physical therapy. Apparently, the patient does have a caregiver. We have directed the patient's family to call S in order to increase her caregiver's hours. The patient is discharged home in stable condition. DISPOSITION: Discharge home. DISCHARGE CONDITION: Stable. DISCHARGE DIET: Regular diet. DISCHARGE ACTIVITY: As tolerated with right upper extremity immobilization. FOLLOWUP: 1. The patient is to follow up with Dr. Barrera within 1 week. 2. Follow up with primary care physician within 1 week. 3. Home health physical therapy for safety evaluation at home has been ordered. 4. The patient does have a caregiver at home. We have advised for them to increase her hours. DISCHARGE MEDICATIONS: 1. Norvasc 2.5 mg p.o. daily. 2. Colace 100 mg p.o. t.i.d. 3. [place] 5/325 one tab p.o. q.6h. p.r.n. pain. DISCONTINUED MEDICATION: Includes furosemide 20 mg p.o. daily. DISCHARGE DIAGNOSES: 1. Right shoulder dislocation and humeral head fracture, status post reduction of dislocated should er and immobilization of right upper extremity via SPC/HSS brace. 2. Acute kidney injury versus chronic kidney disease, resolved. 3. Hypertension. 4. Tobacco use. 5. Hard of hearing. Dictated By: JONAH STRICKLAND/SAILAJA Conf#: [id number] DID#: [id number]
== END 2016-09-22 20:15 | disposition home or self-care (01) | DRG 563 ==
LOC: E/R 10:43 → MS1 16:27 → SDS 16:27 → MS1 19:55 → SDS 22:46 → MS1 22:46
PROVIDERS: ADMIT Internal Medicine; ATTEND Internal Medicine
PROC: 0PSCXZZ Reposition Right Humeral Head, External Approach (ICD-10-PCS; principal; 2016-09-20 16:00)
DX: S43.084A Other dislocation of right shoulder joint, initial encounter (principal); S42.291A Other displaced fracture of upper end of right humerus, initial encounter for closed fracture; I10 Essential (primary) hypertension; Z72.0 Tobacco use; H91.90 Unspecified hearing loss, unspecified ear; W18.31XA Fall on same level due to stepping on an object, initial encounter; Y92.009 Unspecified place in unspecified non-institutional (private) residence as the place of occurrence of the external cause; N28.9 Disorder of kidney and ureter, unspecified
CPT/HCPCS: 71010; 80048; 80053; 83735; 84100; 84484; 85025; 85610; 85730; 93005; 96361; 96374; 96375; 96376; 97116; 97162; 97530; J0360; J1170; J2270; J2370; J2405; J3010; J7030; L3980

== ENCOUNTER 2017-06-06 10:20 | Emergency (ER) | payer OTHER ==
[~2017-06-06] VITALS: Ht 144.8 cm; Wt 70.0 kg
[~2017-06-06 10:20] MED LIST changes: -FURO20TA3 PO
[2017-06-06 10:24] VITALS: Ht 144.8 cm; Wt 70.0 kg
[2017-06-06] MEDS ORDERED: ONDANSETRON 4 MG INJ IV STA (12:18)
[2017-06-06] MEDS ORDERED: SOD CHLORIDE 0.9% 500 ML IV STA (12:18)
[2017-06-06] MEDS ORDERED: morphine 2 MG INJ IV STA (12:18)
--- NOTE | 2017-06-06 12:36 | ERD ---
ER Documentation Chief Complaint Chief Complaint back pain HPI This is an 87-year-old female, Citizen Of [place]-speaking. Licensed Mortgage Loan Officer used. 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 The patient cannot clearly explain why she is in the emergency room. Teasing this out it appears that she is here because of right lumbar back pain that is atraumatic and lasting approximately 2 weeks. The pain is moderate, worse with bending over and rotational movement. No migratory pain to the right lower quadrant or lower extremity. She is also describing some discomfort when urinating. Patient denies any fevers or chills, no chest pain and no headache. Remainder of HPI is limited given limitations as described above. ROS All systems reviewed and are negative except as per history of present illness. Medications Home Meds Active Scripts Docusate Sodium* (Colace*) 100 Mg Capsule, 100 MG PO TID Y for CONSTIPATION, # 30 CAP Prov:SERGIO STINSON MD 06/06/17 Tramadol HCl (Tramadol HCl) 50 Mg Tablet, 50 MG PO Q6 Y for PAIN, #20 TAB Prov:SERGIO STINSON MD 06/06/17 Reported Medications Amlodipine Besylate* (Norvasc*) 5 Mg Tablet, 5 MG PO DAILY, TAB 06/06/17 Discontinued Reported Medications Amlodipine Besylate* (Amlodipine Besylate*) 2.5 Mg Tablet, 2.5 MG PO DAILY, #30 TAB 01/11/16 Discontinued Scripts Docusate Sodium* (Colace*) 100 Mg Capsule, 100 MG PO TID, #30 CAP Prov:ASHVIN ARIAS MD 01/11/16 Hydrocodone Bit-Acetaminophen* ([place]*) 5-325 Mg Tab, 1 TAB PO Q6 Y for PAIN, # 20 TAB Prov:ASHVIN ARIAS MD 01/11/16 Allergies Allergies: Coded Allergies: No Known Allergy (Unverified , 06/06/17) PMhx/Soc History of Surgery: Yes (2017) Anesthesia Reaction: No Hx Neurological Disorder: No Hx Respiratory Disorders: No Hx Cardiac Disorders: Yes (HTN) Hx Psychiatric Problems: No Hx Miscellaneous Medical Probl: Yes (acute kidney injury, HTN, [place]) Hx Alcohol Use: Yes Hx Substance Use: No Hx Tobacco Use: Yes FmHx Family History: No diabetes Physical Exam Vitals Vital Signs Date Time Temp Pulse Resp B/P Pulse Ox O2 Delivery O2 Flow Rate FiO2 06/06/17 15:06 62 18 132/52 98 Room Air 06/06/17 13:44 98.1 72 17 120/72 99 Room Air 06/06/17 10:24 98.1 94 18 191/97 99 Physical Exam General: Well developed, well nourished, no acute distress Head: Normocephalic, atraumatic. Eyes: Pupils equally reactive, EOM intact ENT: Moist mucous membranes Neck: Supple, no lymphadenopathy Respiratory: Lungs clear bilaterally, no distress Cardiovascular: RRR, no murmurs, rubs, or gallops Abdominal: Soft, non-tender, non-distended, no peritoneal signs no tenderness to McBurney's point : Deferred MSK: No edema, no unilateral swelling, 5/5 strength, no midline tenderness deformities or step-offs of the thoracolumbar spine with reproducible soft tissue tenderness to the right lateral lumbar back muscles. Negative straight leg raise bilaterally. Steady gait. Neurologic: Alert and oriented, moving all extremities, normal speech, no focal weakness, no cerebellar signs Skin: No rash Psych: Normal mood Result Diagram: 06/06/17 1320 06/06/17 1320 Results 24 hrs Laboratory Tests Test 06/06/17 13:20 06/06/17 15:40 White Blood Count 6.310^3/ul Red Blood Count 4.1810^6/ul Hemoglobin 12.0g/dl Hematocrit 36.3% Mean Corpuscular Volume 86.8fl Mean Corpuscular Hemoglobin 28.7pg Mean Corpuscular Hemoglobin Concent 33.1g/dl Red Cell Distribution Width 14.6% Platelet Count 04019^3/UL Mean Platelet Volume 10.1fl Neutrophils % 68.6% Lymphocytes % 19.2% Monocytes % 8.9% Eosinophils % 2.5% Basophils % 0.6% Nucleated Red Blood Cells % 0.0/100WBC Neutrophils # 4.310^3/ul Lymphocytes # 1.210^3/ul Monocytes # 0.610^3/ul Eosinophils # 0.210^3/ul Basophils # 0.010^3/ul Nucleated Red Blood Cells # 0.010^3/ul Sodium Level 142mmol/L Potassium Level 4.3mmol/L Chloride Level 107mmol/L Carbon Dioxide Level 25mmol/L Anion Gap 14 Blood Urea Nitrogen 23mg/dl Creatinine 1.17mg/dl Glucose Level 88mg/dl Calcium Level 9.5mg/dl Total Bilirubin 0.6mg/dl Direct Bilirubin 0.00mg/dl Indirect Bilirubin 0.6mg/dl Aspartate Amino Transf (AST/SGOT) 23IU/L Alanine Aminotransferase (ALT/SGPT) 25IU/L Alkaline Phosphatase 111IU/L Total Protein 7.2g/dl Albumin 3.7g/dl Globulin 3.50g/dl Albumin/Globulin Ratio 1.05 Lipase 120U/L Urine Color YELLOW Urine Clarity CLEAR Urine pH 6.0 Urine Specific [place] 1.017 Urine Ketones NEGATIVEmg/dL Urine Nitrite NEGATIVEmg/dL Urine Bilirubin NEGATIVEmg/dL Urine Urobilinogen NEGATIVEmg/dL Urine Leukocyte Esterase NEGATIVELeu/ul Urine Hemoglobin NEGATIVEmg/dL Urine Glucose NEGATIVEmg/dL Urine Total Protein NEGATIVEmg/dl Current Medications Medications (Trade) Dose Ordered Sig/Yanira Route PRN Reason Start Time Stop Time Status Last Admin Dose Admin Sodium Chloride (NS) 500 ml @ 500 mls/hr Q1H STAT IV 06/06/17 12:18 06/06/17 13:17 DC 06/06/17 12:18 Morphine Sulfate (morphine) 2 mg ONCE STAT IV 06/06/17 12:18 06/06/17 12:20 DC 06/06/17 13:47 Ondansetron HCl (Zofran Inj) 4 mg ONCE STAT IV 06/06/17 12:18 06/06/17 12:20 DC 06/06/17 13:46 Procedures/MDM EKG, MONITORS, & DIAGNOSTIC IMAGING: CT abdomen and pelvis: IMPRESSION: 1. Moderate sized hiatal hernia. 2. Cholelithiasis without evidence of gallbladder wall thickening or biliary tree dilatation. 3. No evidence of urolithiasis or obstructive uropathy. 4. Scattered colonic diverticulosis without evidence of acute diverticulitis. 5. Normal appearing appendix visualized. 6. No mass, lymphadenopathy or evidence of an acute inflammatory process CT lumbar spine: IMPRESSION: 1. No acute fractures or traumatic subluxations. 2. 5 mm grade 1 spondylolisthesis of L5 and S1 without evidence for spondylolysis. 3. Multilevel vacuum disc phenomenon with degenerative endplate and disc changes as noted above at the T10-11, L1-2 through L3-4 and L5-S1 levels. 4. Multilevel broad-based disc osteophyte complexes at the T11-12 through L5-S1 levels with severe central canal stenosis at L4-5, moderate to severe central canal stenosis at T11-12, moderate at T12-L1 and L3-4, and mild stenosis at L1- 2 and L5-S1 levels. 5. Multilevel neural foraminal stenosis at the T11-12 through L5-S1 levels and correlate with respective radiculopathy 6. Multilevel facet osteoarthropathy. 7. Bilateral renal cortical cysts. 8. Large hiatal hernia LAB INTERPRETATION: No leukocytosis, normal electrolytes, normal urine MEDICAL DECISION MAKING: This patient presents to the emergency room with multiple complaints. It appears she has nontraumatic paraspinal lumbar back pain that is seems to be most consistent with lumbar spasm and strain. Very low clinical concern for acute aortic process. Low clinical concern for pyelonephritis, ureterolithiasis or acute lumbar radiculopathy. The patient is also describing some dysuria, consider possible urinary tract infection. Given the patient's poor history, age I believe advanced imaging would be appropriate to rule out acute intra-abdominal process. The patient will benefit from CT imaging of the abdomen and lumbar spine. Symptom control be provided. ER COURSE: The patient's laboratory testing and diagnostic imaging is unrevealing. Pain medicine provided. The patient is asymptomatic currently. At this point this is most likely musculoskeletal. The patient does have a history of anxiety which could be playing a role. The patient is ambulatory in the emergency room and a social media developer has helped arrange discharge on the patient's daughter is coming to get her. I kept the patient and/or family informed of laboratory and diagnostic imaging results throughout the emergency room course. DISPOSITION PLAN: We discussed follow up with the patient's primary care doctor within 24 to 48 hours as needed. We also discussed return to the emergency room for worsening symptoms or worsening condition. Outpatient referral: [None required] Discharge Medications: Tramadol provided, the patient has family at home and given the patient's age she has a slight fall risk therefore I discussed this with the patient who is agreeable. The patient is taken strong medications in the past. I believe [place] would be too much for this patient. Colace also provided. Departure Diagnosis: Primary Impression: Lumbar back pain Additional Impression: Anxiety Condition: SERGIO Jenkins MD Dec 13, 2017 12:36
--- NOTE | 2017-06-06 13:36 | RADRPT ---
PROCEDURE: CT Abdomen and Pelvis without contrast. CLINICAL INDICATION: Abdominal and low back pain. TECHNIQUE: CT scan of the abdomen and pelvis without contrast was performed on a multidetector hig h-resolution CT scanner. The patient was scanned without intravenous contrast. Coronal and sagittal reformatted images were obtained from the axial source images. Images were reviewed on a high-resol [employer] PACS workstation. The total exam CTDI equals 9.51 mGy and the total exam DLP equals 497.34 mGy -cm. One or the following dose reduction techniques were used: -Automated exposure control. -Adjustment of the mA and/or KV according to patient's size. -Use of iterative reconstruction technique. DICOM images are available. COMPARISON: CT abdomen and pelvis from 09/26/2015. FINDINGS: Lower thorax: Bibasilar dependent atelectasis. Mild cardiomegaly with atherosclerotic coronary arter y calcifications. GI:. Moderate size hiatal hernia. Liver: Unremarkable. Gallbladder: There is cholelithiasis without evidence of gallbladder wall thickening or biliary tree dilatation. Pancreas: Unremarkable. Spleen: Unremarkablel Adrenals: Unremarkable. Kidneys: There is no evidence of urolithiasis or obstructive uropathy. There are unchanging bilatera l renal cysts, left greater than right. Bladder: Unremarkable. Pelvic Organs: Unremarkable. 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 Other: Tortuous atherosclerotic abdominal aorta and iliac vessels. IMPRESSION: 1. Moderate sized hiatal hernia. 2. Cholelithiasis without evidence of gallbladder wall thickening or biliary tree dilatation. 3. No evidence of urolithiasis or obstructive uropathy. 4. Scattered colonic diverticulosis without evidence of acute diverticulitis. 5. Normal appearing appendix visualized. 6. No mass, lymphadenopathy or evidence of an acute inflammatory process RPTAT: [facility] Physician Simon Date Time Electronically viewed and signed by Physician Simon on 06/06/2017 13:36 /
[2017-06-06 13:42] LABS: BASOPHILS % 0.6 % (0.0-2.0); EOSINOPHILS # 0.2 10^3/ul (0.0-0.5); EOSINOPHILS % 2.5 % (0.0-7.0); HEMATOCRIT 36.3 % (37.0-47.0); LYMPHOCYTES # 1.2 10^3/ul (0.8-2.9); LYMPHOCYTES % 19.2 % (15.0-51.0); MEAN CORPUSCULAR HEMOGLOBIN 28.7 pg (29.0-33.0); MEAN CORPUSCULAR HGB CONC 33.1 g/dl (32.0-37.0); MEAN CORPUSCULAR VOLUME 86.8 fl (82.0-101.0); MEAN PLATELET VOLUME 10.1 fl (7.4-10.4); MONOCYTE # 0.6 10^3/ul (0.3-0.9); MONOCYTES % 8.9 % (0.0-11.0); NEUTROPHIL # 4.3 10^3/ul (1.6-7.5); NEUTROPHILS % 68.6 % (39.0-77.0); PLATELET COUNT 252 10^3/UL (140-415); RED BLOOD COUNT 4.18 10^6/ul (4.20-5.40); RED CELL DISTRIBUTION WIDTH 14.6 % (11.5-14.5); WHITE BLOOD COUNT 6.3 10^3/ul (4.8-10.8)
[2017-06-06 13:44] VITALS: TEMP 98.1
[2017-06-06 13:59] LABS: ALBUMIN 3.7 g/dl (3.3-4.9); ALBUMIN/GLOBULIN RATIO 1.05; BILIRUBIN,INDIRECT 0.6 mg/dl (0-1.1); BILIRUBIN,TOTAL 0.6 mg/dl (0.2-1.3); CALCIUM 9.5 mg/dl (8.4-10.2); CREATININE 1.17 mg/dl (0.44-1.00); POTASSIUM 4.3 mmol/L (3.5-5.1); TOTAL PROTEIN 7.2 g/dl (6.1-8.1)
--- NOTE | 2017-06-06 14:06 | RADRPT ---
PROCEDURE: CT L-Spine low back pain CLINICAL INDICATION: Abdominal pain and low back pain TECHNIQUE: A CT of the lumbar spine was performed on a [employer]ek 64-slice CT scanner utilizing high-resolution thin section axial images from the thoracic lumbar junction through the lumbar sacr al junction. Sagittal and coronal and multiplanar reformatted images were made. The CTDIvol is 9.51 mGy and the DLP is 497.34 mGycm. DICOM images are available. One of the following 3 dose reduction techniques were used during this CT examination: 1) Automated exposure control 2) Adjustment of the mA +/- kV according to patient size or 3) Use of iterative reconstruction technique COMPARISON: None available FINDINGS: The visualized spine alignment demonstrates a grade 1, 5 mm, spondylolisthesis of L5 on S1 without e vidence for spondylolysis. Preservation of vertebral body heights are noted. No acute fractures or t raumatic subluxations are present. Vacuum disc phenomenon is present at the T10-11, L1-2 through L3- 4 and L5-S1 levels. Severe disc space height loss is noted at the L1-2 and L2-3 levels with moderate disc space height loss at L3-4 and L5-S1. No acute fractures or dislocations are present . The post erior elements are well-aligned and intact. The visualized paravertebral soft tissues demonstrate a large hiatal hernia. Mild vascular calcifications are present. Multiple left renal cortical cysts ar e present. Vascular calcifications are present of the aorta fusiform dilatation measuring 2.7 cm AP by 2.9 cm transverse by 6.4 cm in superior inferior dimensions. Ossific axial levels are as follows: T11-12: Mild osteophytic bar and bulge is present. Mild bilateral facet arthropathy is present. AP canal dimension is 6.6 mm. This results in a moderate to severe central canal stenosis, bilateral fong barticular recess stenosis and mild bilateral neural foraminal stenosis. T12-L1: A 4 mm mild broad-based bulge is present. AP canal dimension is 7.9 mm. Mild bilateral face t arthropathy is present with ligamentum hypertrophy. Moderate central canal stenosis, bilateral sub articular recess stenosis and moderate bilateral neural foraminal stenosis is present. L1-2: Vacuum disc phenomenon with severe disc space height loss and degenerative changes of the endp lates are noted. Mild bilateral facet arthropathy is present. An osteophytic bar and bulge is presen t. AP canal dimension is 9.6 mm. This results in a mild central canal stenosis, bilateral subarticul ar recess stenosis and severe bilateral neural foraminal stenosis. L2-3: Degenerative disc disease, vacuum phenomenon is noted with severe disc space height loss. A 5 mm large broad-based bulge is present with osteophyte. AP canal dimension is 7.2 mm. Bilateral facet arthropathy and ligamentum hypertrophy is present. This contributes to moderate central canal steno sis, bilateral subarticular recess stenosis and moderate bilateral neural foraminal stenosis. L3-4: Moderate disc space height loss and vacuum phenomenon is present. A mild broad-based bulge an d osteophyte is present. AP canal dimension is 7.6 mm. Mild bilateral facet arthropathy and ligament um hypertrophy is present. This results in a moderate central canal stenosis, bilateral subarticular recess stenosis and moderate bilateral neural foraminal stenosis. L4-5: The intervertebral disc height is normal. A 3 mm moderate osteophytic bar and bulge is present . AP canal dimension is 5.9 mm. Bilateral facet arthropathy is present. This results in a severe elaine tral canal stenosis, bilateral subarticular recess stenosis and severe bilateral neural foraminal st enosis. L5-1: Grade 1 5 mm spondylolisthesis of L5 on S1 is present. A 7 mm large broad-based bulge is prese nt. Bilateral facet arthropathy is present. AP canal dimension is 10 mm. This results in a mild cent ral canal stenosis, bilateral subarticular recess stenosis and severe right neural foraminal stenosi s and moderate left neural foraminal stenosis. IMPRESSION: 1. No acute fractures or traumatic subluxations. 2. 5 mm grade 1 spondylolisthesis of L5 and S1 without evidence for spondylolysis. 3. Multilevel vacuum disc phenomenon with degenerative endplate and disc changes as noted above at t he T10-11, L1-2 through L3-4 and L5-S1 levels. 4. Multilevel broad-based disc osteophyte complexes at the T11-12 through L5-S1 levels with severe c entral canal stenosis at L4-5, moderate to severe central canal stenosis at T11-12, moderate at T12- L1 and L3-4, and mild stenosis at L1-2 and L5-S1 levels. 5. Multilevel neural foraminal stenosis at the T11-12 through L5-S1 levels and correlate with respec tive radiculopathy 6. Multilevel facet osteoarthropathy. 7. Bilateral renal cortical cysts. 8. Large hiatal hernia RPTAT: [facility] .Dia Glass MD, Date Time Electronically viewed and signed by .Dia Glass MD, on 06/06/2017 14:05 .C/
[2017-06-06 15:06] VITALS: BP 132/52; PULSE 62; RESP 18
[2017-06-06 16:01] LABS: ADD UMIC NO; UR ASCORBIC ACID NEGATIVE (NEGATIVE); UR BILIRUBIN (Dip) NEGATIVE (NEGATIVE); UR BLOOD (Dip) NEGATIVE (NEGATIVE); UR CLARITY CLEAR (CLEAR); UR COLOR YELLOW (YELLOW); UR GLUCOSE (Dip) NEGATIVE (NEGATIVE); UR KETONES (Dip) NEGATIVE (NEGATIVE); UR LEUKOCYTE ESTERASE (Dip) NEGATIVE Leu/ul (NEGATIVE); UR NITRITE (Dip) NEGATIVE (NEGATIVE); UR SPECIFIC GRAVITY (Dip) 1.017 (1.003-1.030); UR TOTAL PROTEIN (Dip) NEGATIVE (NEGATIVE); UR UROBILINOGEN (Dip) NEGATIVE (NEGATIVE)
[2017-06-06] MEDS ORDERED: TRAM50TA2 PO (16:17)
[2017-06-06] MEDS ORDERED: DOCU-144 PO (16:17)
[2017-06-06] MEDS ORDERED: AMLO5TAB4 PO (16:50)
== END 2017-06-06 17:33 | disposition home or self-care (01) ==
LOC: E/R 10:20
DX: M54.5 Low back pain (principal); F41.9 Anxiety disorder, unspecified; I10 Essential (primary) hypertension; F17.210 Nicotine dependence, cigarettes, uncomplicated
CPT/HCPCS: 72131; 74176; 80053; 81003; 83690; 85025; J2270; J2405; J7040; 36415; 96374; 96375

== ENCOUNTER 2017-07-13 10:31 | Emergency (ER) | END 2017-07-13 16:59 | disposition left against medical advice (07) ==

== ENCOUNTER 2017-08-07 11:39 | Emergency (ER) | END 2017-08-07 16:02 | disposition home or self-care (01) ==